=== PATIENT | male | born 1960 | race Caucasian/White ===

== ENCOUNTER 2016-09-27 11:27 | Day surgery (SDC) | payer OTHER ==
[~2016-09-27 11:27] MED LIST: ceFAZolin 2 GM/DEXTROSE 100 ML IV ONE
[2016-09-27] MEDS ORDERED: LIDOCAINE 1% 5 ML SDV ONE (11:40)
[2016-09-27] MEDS ORDERED: CEFAZOLIN 2 GM/DEXTROSE/100 ML BAG IV ONE (11:49)
[2016-09-27] MEDS ORDERED: LIDOCAINE 1% 5 ML SDV ID PRN (11:53)
[2016-09-27] MEDS ORDERED: LR 1,000 ML IV ONE (11:53)
[2016-09-27] MEDS ORDERED: PROPOFOL/EMULSION 500 MG/50 ML BOTTLE IV ONE (13:26)
[2016-09-27] MEDS ORDERED: fentaNYL 250 MCG/5 ML INJ ONE (13:26)
[2016-09-27] MEDS ORDERED: DEXAMETHASONE 4 MG/ML VIAL ONE (13:28)
[2016-09-27] MEDS ORDERED: ONDANSETRON 4 MG/2 ML VIAL ONE (13:28)
[2016-09-27] MEDS ORDERED: LIDOCAINE 2% 5 ML SDV ONE (13:28)
[2016-09-27] MEDS ORDERED: MIDAZOLAM 2 MG/2 ML VIAL ONE (13:33)
[2016-09-27] MEDS ORDERED: GLYCOPYRROLATE 0.2 MG/1 ML VIAL ONE (14:14)
[2016-09-27] MEDS ORDERED: KETOROLAC 30 MG/1 ML SDV ONE (15:14)
--- NOTE | 2016-09-27 16:19 | POSTOPPROG ---
Post Op Note Date of Operation: 09/27/16 Surgeon: Jordy Valente Music Artist: Ramila Villaseñor PA-C Anesthesiologist: Tierra Anesthesia: GET(General Endotracheal) Pre-op Diagnosis: R knee osteoarthritis, fibrosis, loose body and synovitis, meniscus tears Post-op Diagnosis: R knee osteoarthritis, fibrosis, loose body and synovitis, meniscus tears Indication: R knee pain Procedure: R knee arthroscopy and mini-arthrotomy for loose body and phyte removal Findings: See op-report Inf/Abcess present in the surg proc area at time of surgery?: No EBL: Minimal Complications: None Specimen(s): None
--- NOTE | 2016-09-27 17:54 | GOP ---
[f rep st] OPERATIVE REPORT DATE OF OPERATION: 09/27/2016 SURGEON: Jordy Valente MD [facility] CONSULTANT: NINA Sainz ANESTHESIA: General. ANESTHESIOLOGIST: Dr. Sibley PREOPERATIVE DIAGNOSIS: 1. Right knee medial compartment bone on bone degenerative joint disease. 2. Right knee degenerative meniscus tears. 3. Right knee intraarticular synovitis. 4. Right knee intraarticular loose bodies. POSTOPERATIVE DIAGNOSIS: 1. Right knee medial compartment bone on bone degenerative joint disease. 2. Right knee degenerative meniscus tears. 3. Right knee intraarticular synovitis. 4. Right knee intraarticular loose bodies. PROCEDURE PERFORMED: 1. Right knee arthroscopic partial medial and lateral meniscectomies. 2. Right knee arthroscopic extensive chondroplasty (tricompartmental). 3. Right knee arthroscopic synovectomy and lysis of adhesions with anterior interval release and scar resection. 4. Right knee mini arthrotomy for anterior interval loose body removal and inferior pole patella impinging osteophyte resection. FINDINGS: Grade 1+ effusion. Extensive synovitis throughout all 3 compartments. There was severe scarring, fibrosis, and adhesions throughout the area of the anterior interval and where there was previously more normal- appearing fat pad. Patient did have signs of prior surgery in the knee. The anterior interval was with dense scar, as well as shredded and frayed tissues to include portions of the anteromedial footprint of the ACL and inner meniscal ligament. The inferior pole patellar osteophyte, as well as anterior interval loose body were both impinging on this area with range of motion of the knee under direct visualization with the arthroscope. Otherwise, there was a degenerative medial meniscus tear with endstage [id number] arthritis. Lateral compartment was with moderate chondromalacia and free edge body fraying with a small area of white zone radial flap tear. PCL was involved by extensive scar and synovitis, though appeared intact. The majority of the ACL appeared intact, other than the areas of degenerative fraying as a result of the impinging osteophytes. Patellofemoral joint was with extensive chondromalacia of the patella, and more significant chondral defect and flap morphology of the trochlea. There was type 2 suprapatellar plica that was left intact. There were large superior femoral osteophytes at the margin of the articular cartilage. There was extensive gutter and suprapatellar pouch synovitis. SPECIMENS: None. ESTIMATED BLOOD LOSS: Less than 20 cc. INDICATIONS: A 56-year-old highly active male with known right knee primary medial compartment degenerative joint disease. The patient was managed with extensive nonoperative care, including core placer brace, p.o. NSAIDs, RICE, and injections. After failing all nonoperative care, he elected to proceed with knee arthroscopy. Arthroplasty was discussed with the patient however, he was not willing to proceed with any such surgery. As a result, the risks, benefits , and alternatives to arthroscopic surgery, as well as osteophyte resection and loose body removal were discussed. The risks, benefits, and alternatives were explained throughout. All of his questions were answered and he provided a signed, witnessed informed consent which was placed in his chart. Please see the patient's history and physical for additional information. DESCRIPTION OF PROCEDURE: The patient was identified in the preop holding area , and his right knee was signed and designated as the operative site. Patient was confirmed to be in left lower extremity. BHARATH cantu and [place]. He was treated with 2 g IV prophylactic cefazolin per protocol. He was taken back to the operative room, placed supine on the OR table, and general anesthesia was obtained. The patient underwent EUA of both knees. The left lower extremity was placed in a padded well leg coppola. Right lower extremity was wrapped proximally with cast padding and a nonsterile tourniquet, and then prepped and draped in the usual sterile manner. Anteromedial and anterolateral scope portals were established with an #11 blade. Complete diagnostic arthroscopy was performed with the findings listed above. Initial entry into the knee was relatively difficult due to impingement with a loose body and large osteophyte, as well as significant scar and fibrosis within the anterior interval. The knee was entered and then, working from both the medial and lateral portals, an extensive anterior interval lysis of adhesions was performed. Using both a full-radius shaver and ArthroCare wand, this then allowed for more reasonable mobility within the knee using the arthroscope. The ACL had multiple degenerative and frayed fibers that were carefully debrided back to a stable base with the full-radius shaver. Again, this was mostly on the anteromedial insertion on the tibia. This was directly adjacent to a large osteochondral loose body, as well as inferior patellar osteophyte. The knee was placed in figure-of-4 position and the lateral compartment was entered. A standard partial lateral meniscectomy was completed with the full- radius shaver. Additional chondroplasty of the tibial plateau and femoral condyle surface was then performed, only resecting the unstable chondral flap segments back to a stable base. With the knee in approximately 20 degrees of flexion and a lateral post, a valgus force was utilized in order to enter the medial compartment. Medial meniscal degenerative fraying and tearing were debrided back to a stable base using the full-radius shaver. Some marginal chondral flap segments adjacent to the full-thickness grade 4 chondral loss on both femoral and tibial sides were utilized in order to perform standard chondroplasty technique. Once the work was completed in the medial compartment, the knee was left flexed over the side of the bed and the area around the loose bodies was addressed. Using the full-radius shaver, as well as the ArthroCare wand, additional dissection around the inferior patellar pole, as well as osteophyte was performed. Finally, with the knee in full extension the suprapatellar pouch was entered. Due to severe stenosis and osteophytes, only minimal synovectomy was performed in this region. Chondroplasty of the trochlea chondral defect and flaps, as well as chondromalacia of the patella was then performed with the full-radius shaver. Once the arthroscopic portion of the case was completed, the scope equipment was removed and saline evacuated. Due to the large size of the osteophyte inferiorly, as well as anterior interval loose body, a small 3 cm skin incision was made, i.e., extension of the lateral portal in order to enter the knee through anterolateral mini arthrotomy. Careful dissection was taken down through the subcutaneous fat. There was abundant fat and/or scar in this region, which was resected with the Metzenbaum scissors. The Bovie cautery device was confirmed to be safe for use with direct monitoring of the patient's cardiac rhythm by the anesthesiologist. Very limited Bovie cautery utilization was used only for cauterizing vessels in the area of the dissection. The extensive fat hypertrophy and/or scar in the area of this incision was resected as the patient did note that this area was bothersome and proud or prominent. Next, with further dissection deep, the arthroscopic portal was extended proximally and distally to an open mini arthrotomy. Care was taken to maintain this approach lateral to the lateral aspect of the patellar tendon. A retractor was placed just deep to the patellar tendon, as well as another [employer]- [employer] was placed opposite in order to open up the knee arthrotomy. This allowed room for me to fit my finger in the joint and palpate the loose body. A pituitary rongeur was then utilized in order to grasp this loose body and carefully free from any adhesions, and then remove it in its entirety from the joint. Finally, using a large rongeur the inferior spike of the infrapatellar osteophyte was resected back to a well rounded and smooth base. Care was taken to ensure there were no significantly proud or sharp edges. Approximately 1 cm of the inferior portion of the osteophyte was resected in order to limit any further impingement upon the intrameniscal ligament and/or ACL. Once this work was completed, the knee joint was copiously irrigated with sterile saline. Closure was then begun. #1 Ethibonds were used to close the knee arthrotomy. 0 Vicryl and 2-0 Vicryl sutures were used to close the deep fat space and potential space. 2-0 Monocryl was used in a deep dermal manner. A running horizontal mattress trauma stitch was used with 3-0 Prolene to close the skin. The medial portal was closed with a simple 3-0 nylon stitch. Sterile postop surgical dressings were applied. A BHARATH hose was applied. The anesthesia service took over to wake patient up. TOURNIQUET TIME: Tourniquet was inflated prior to mini arthrotomy after Esmarch exsanguination and was inflated for approximately 29 minutes at 250 mmHg. IMPLANTS: None. COMPLICATIONS: None. DISPOSITION: Patient was extubated and transferred to PACU in stable condition. /[id number]/MODL MTDD
== END 2016-09-27 17:30 | disposition home or self-care (01) ==
LOC: FSGY 11:27
PROVIDERS: ATTEND Orthopaedic Surgery
PROC: 0SC Lower Joints, Extirpation (ICD-10-PCS; principal; 2016-09-27 13:30)
PROC: 0MQN4ZZ Repair Right Knee Bursa and Ligament, Percutaneous Endoscopic Approach (ICD-10-PCS; principal; 2016-09-27 13:30)
DX: M17.11 Unilateral primary osteoarthritis, right knee (principal); M23.003 Cystic meniscus, unspecified medial meniscus, right knee; M23.002 Cystic meniscus, unspecified lateral meniscus, unspecified knee; M23.41 Loose body in knee, right knee; Z53.31 Laparoscopic surgical procedure converted to open procedure; I25.10 Atherosclerotic heart disease of native coronary artery without angina pectoris; I48.91 Unspecified atrial fibrillation; E03.9 Hypothyroidism, unspecified; Z86.718 Personal history of other venous thrombosis and embolism; Z86.711 Personal history of pulmonary embolism; Z88.1 Allergy status to other antibiotic agents
CPT/HCPCS: J0690; J1100; J1885; J2250; J2405; J2704; J3010